=== PATIENT | female | born 1955 | race Caucasian/White ===

== ENCOUNTER 2017-04-18 10:08 | Emergency (ER) | payer BC ==
[~2017-04-18] VITALS: Ht 170.2 cm; Wt 69.9 kg
[~2017-04-18 10:08] MED LIST: CLON1TAB3 PO; DULO-24 PO; HYDR-4383 PO; SIMV40TA2 PO; TRAZ50TA35 PO
[2017-04-18 10:12] VITALS: TEMP 36.8; Ht 170.2 cm; Wt 69.9 kg
[2017-04-18 10:21] VITALS: O2SAT 97
[2017-04-18 10:45] LABS: BASO % 0.6 %; BASO ABS # 0.04 K/uL (0-0.2); COMPLETE YES; EOS % 3.2 %; HEMATOCRIT 39.7 % (37-47); IG% 0.3 %; LYMPH % 45.3 %; LYMPH ABS # 2.97 K/uL (1.2-3.4); MEAN CELL VOLUME 90.6 fL (80-100); MEAN CORPUSCULAR HEMOGLOBIN 30.4 pg (25-34); MEAN CORPUSCULAR HGB CONC 33.5 g/dl (32-36); MEAN PLATELET VOLUME 9.6 fL (7.4-10.4); MONO % 8.5 %; NEUT % 42.1 %; PLATELET COUNT 285 K/uL (130-400); RED BLOOD COUNT 4.38 M/uL (4.2-5.4); WHITE BLOOD COUNT 6.56 K/uL (4.8-10.8)
[2017-04-18 10:58] LABS: INR 0.9 (0.9-1.1); PARTIAL THROMBOPLASTIN RATIO 1.1; PROTHROMBIN TIME (PATIENT) 10.1 SECONDS (9.0-12.0)
--- NOTE | 2017-04-18 10:58 | DIAGNOSTIC IMAGING REPORT ---
CHEST ONE VIEW PORTABLE CLINICAL HISTORY: Fever. Sepsis. COMPARISON STUDY: Chest radiograph October 02, 2016. FINDINGS: Lung volumes are normal. No pneumothorax or pleural effusion is present. There is no consolidation to suggest pneumonia. Interstitial prominence is unchanged. Hazy bibasilar opacities are unchanged and likely artifactual. IMPRESSION: No acute cardiopulmonary findings. No change in appearance of the chest. Electronically signed by: Nilson Rutledge M.D. 04/18/2017 10:57 AM Dictated Date/Time: 04/18/2017 10:56 AM
[2017-04-18 11:08] LABS: ALT/SGPT 26 U/L (12-78); AST/SGOT 23 U/L (15-37); BLOOD UREA NITROGEN 7 mg/dl (7-18); BUN/CREATININE RATIO 9.8 (10-20); CALCIUM 8.6 mg/dl (8.5-10.1); CARBON DIOXIDE 26 mmol/L (21-32); CHLORIDE 109 mmol/L (98-107); GLUCOSE 103 mg/dl (70-99); POTASSIUM 3.8 mmol/L (3.5-5.1); SODIUM 143 mmol/L (136-145)
[2017-04-18 11:19] LABS: ALKALINE PHOSPHATASE 73 U/L (45-117)
--- NOTE | 2017-04-18 11:51 | EMERGENCY ROOM VISIT NOTE ---
History Report prepared by Angelic: Dewayne Hoffmann Under the Supervision of: Dr. Roman Zurita D.O. First contact with patient: 10:23 Chief Complaint: IRREGULAR HEARTBEAT Stated Complaint: IRREGULAR HEARTBEAT Nursing Triage Summary: Patient states she's had irregular heart beats for over a year. Did have a holter monitor a year ago but had no episodes while on monitor. Over the last month the irregular heart rate has been more frequent. Denies pain. Called Dr and was told to come to ER. Denies dizziness. Sometimes she feels that her HR is irregular in her neck. pt reports palpatations, 3 fast beats then pause, then repeats History of Present Illness The patient is a 61 year old female who presents to the Emergency Room with complaints of worsening heart palpitations starting a month ago. The patient states that she can feel the irregular heart rate via the pulse in her neck. She reports that she feels a repetition of rapid beats followed by a pause. The patient states that she had a Holter monitor a year ago but denies any episodes. She states that she normally has an irregular heartbeat that has been going on for over a year, but the irregular heart beat has occurred more frequently for the past month. The patient reports that she had called her doctor who recommended she came to the ED. The patient states that her sister, aunt, and father had a stent placed in their heart. The patient denies any dizziness or pain but admits it is uncomfortable. She reports that she has a cough, but denies that this helped the symptoms. Source of History: patient Onset: a month ago Position: other (global) Timing: worsening Associated Symptoms: + cough, No abdominal pain, No back pain, No chest pain Review of Systems See HPI for pertinent positives & negatives. A total of 10 systems reviewed and were otherwise negative. Past Medical & Surgical Medical Problems: (1) High cholesterol (2) HYPERLIPIDEMIA NEC/NOS (3) Pneumonia (4) POLYMYALGIA RHEUMATICA Surgical Problems: (1) S/P lumbar spinal fusion Family History Cancer Social History Smoking Status: Current Every Day Smoker Drug Use: none Marital Status: Housing Status: lives alone Occupation Status: retired Current/Historical Medications Scheduled Duloxetine Hcl (Cymbalta), 20 MG PO DAILY Simvastatin (Zocor), 40 MG PO HS Scheduled PRN Clonazepam (Klonopin), 1 MG PO BID PRN for Anxiety Hydrocodone/Acetaminophen ([place] 10/325 Tab), 0.5 TAB PO TID PRN for Pain Trazodone Hcl (Trazodone), 25 MG PO HS PRN Allergies Coded Allergies: Levofloxacin (Verified Allergy, Intermediate, ITCHING.09/11/14, 04/18/17) Moxifloxacin (Unverified Allergy, Intermediate, ITCHING AND SWELLING IN HANDS, 04/18/17) Penicillins (Unverified Allergy, Unknown, rash, 04/18/17) Erythromycin (Unverified Adverse Reaction, Unknown, VOMITING, 04/18/17) Physical Exam Vital Signs Date Time Temp Pulse Resp B/P Pulse Ox O2 Delivery O2 Flow Rate FiO2 04/18/17 10:29 74 04/18/17 10:21 97 Room Air 04/18/17 10:20 96 Room Air 04/18/17 10:16 96 Room Air 04/18/17 10:12 36.8 84 16 115/68 96 Room Air Physical Exam CONSTITUTIONAL/VITAL SIGNS: Reviewed / noted above. GENERAL: Non-toxic in appearance. INTEGUMENTARY: Warm, dry, and [place]. HEAD: Normocephalic. EYES: without scleral icterus or trauma. ENT/OROPHARYNX: clear and moist. LYMPHADENOPATHY/NECK: Is supple without lymphadenopathy or meningismus. RESPIRATORY: Lungs clear and equal. CARDIOVASCULAR: Regular rate and rhythm. GI/ABDOMEN: Soft and nontender. No organomegaly or pulsatile mass. No rebound or guarding. Normal bowel sounds. EXTREMITIES: Warm and well perfused. BACK: No CVA tenderness. NEUROLOGICAL: Intact without focal deficits. PSYCHIATRIC: normal affect. MUSCULOSKELETAL: Normally developed with good muscle tone. Medical Decision & Procedures ER Provider Diagnostic Interpretation: X ray results and stated below per my interpretation and radiology interpretation. CHEST ONE VIEW PORTABLE CLINICAL HISTORY: Fever. Sepsis. COMPARISON STUDY: Chest radiograph October 02, 2016. FINDINGS: Lung volumes are normal. No pneumothorax or pleural effusion is present. There is no consolidation to suggest pneumonia. Interstitial prominence is unchanged. Hazy bibasilar opacities are unchanged and likely artifactual. IMPRESSION: No acute cardiopulmonary findings. No change in appearance of the chest. Electronically signed by: Nilson Rutledge M.D. 04/18/2017 10:57 AM Dictated Date/Time: 04/18/2017 10:56 AM Laboratory Results 04/18/17 10:23 Red Blood Count 4.38, Mean Corpuscular Volume 90.6, Mean Corpuscular Hemoglobin 30.4, Mean Corpuscular Hemoglobin Concent 33.5, Mean Platelet Volume 9.6, Neutrophils (%) (Auto) 42.1, Lymphocytes (%) (Auto) 45.3, Monocytes (%) (Auto) 8.5, Eosinophils (%) (Auto) 3.2, Basophils (%) (Auto) 0.6, Neutrophils # (Auto) 2.76, Lymphocytes # (Auto) 2.97, Monocytes # (Auto) 0.56, Eosinophils # (Auto) 0.21, Basophils # (Auto) 0.04 04/18/17 10:23 Test 04/18/17 10:23 White Blood Count 6.56 K/uL (4.8-10.8) Red Blood Count 4.38 M/uL (4.2-5.4) Hemoglobin 13.3 g/dL (12.0-16.0) Hematocrit 39.7 % (37-47) Mean Corpuscular Volume 90.6 fL (80-100) Mean Corpuscular Hemoglobin 30.4 pg (25-34) Mean Corpuscular Hemoglobin Concent 33.5 g/dl (32-36) Platelet Count 285 K/uL (130-400) Mean Platelet Volume 9.6 fL (7.4-10.4) Neutrophils (%) (Auto) 42.1 % Lymphocytes (%) (Auto) 45.3 % Monocytes (%) (Auto) 8.5 % Eosinophils (%) (Auto) 3.2 % Basophils (%) (Auto) 0.6 % Neutrophils # (Auto) 2.76 K/uL (1.4-6.5) Lymphocytes # (Auto) 2.97 K/uL (1.2-3.4) Monocytes # (Auto) 0.56 K/uL (0.11-0.59) Eosinophils # (Auto) 0.21 K/uL (0-0.5) Basophils # (Auto) 0.04 K/uL (0-0.2) RDW Standard Deviation 43.1 fL (36.4-46.3) RDW Coefficient of Variation 12.9 % (11.5-14.5) Immature Granulocyte % (Auto) 0.3 % Immature Granulocyte # (Auto) 0.02 K/uL (0.00-0.02) Prothrombin Time 10.1 SECONDS (9.0-12.0) Prothromb Time International Ratio 0.9 (0.9-1.1) Activated Partial Thromboplast Time 28.1 SECONDS (21.0-31.0) Partial Thromboplastin Ratio 1.1 Anion Gap 8.0 mmol/L (3-11) Est Creatinine Clear Calc Drug Dose 82.1 ml/min Estimated GFR () 108.4 Estimated GFR (Non- 93.5 BUN/Creatinine Ratio 9.8 (10-20) Calcium Level 8.6 mg/dl (8.5-10.1) Total Bilirubin 0.3 mg/dl (0.2-1) Direct Bilirubin < 0.1 mg/dl (0-0.2) Aspartate Amino Transf (AST/SGOT) 23 U/L (15-37) Alanine Aminotransferase (ALT/SGPT) 26 U/L (12-78) Alkaline Phosphatase 73 U/L (45-117) Total Creatine Kinase 16 U/L (26-192) Creatine Kinase MB < 0.5 ng/ml (0.5-3.6) Creatine Kinase MB Ratio (0-3.0) Troponin I < 0.015 ng/ml (0-0.045) Total Protein 7.4 gm/dl (6.4-8.2) Albumin 3.7 gm/dl (3.4-5.0) Thyroid Stimulating Hormone (TSH) 1.790 uIu/ml (0.300-4.500) Laboratory results as stated above per my review. ECG Indication: palpitations Rate (beats per minute): 75 Rhythm: normal sinus Findings: no acute ischemic change, no ectopy ED Course 1035: Previous medical records were reviewed. The patient was evaluated in room B06. A complete history and physical examination was performed. 1135: On reevaluation, the patient is doing well. I discussed the results and findings with the patient. She verbalized agreement of the treatment plan. She was discharged home. Medical Decision the differential was considered includes acute myocardial infarction, acute coronary syndrome, myocarditis, pericarditis, pericardial effusions /tamponad, esophageal perforation, thoracic aortic dissection, pulmonary embolism, pneumonia, pneumothorax, pancreatitis, shingles, acute cholecystitis, perforated abdominal viscus. This is 61-year-old female who presents to the ED with a chief complaint of heart palpitations. She states that they resolved shortly after she arrived. They were not caught on the monitor. The patient states that she has a few beats and then a positive a couple of beats and her heart feels like it races on occasion. She has had this in the past. She denies any other symptoms and is currently asymptomatic. Her vital signs are normal. Her physical exam was normal. EKG shows a normal sinus rhythm. CBC and PRP are normal. Troponin and TSH are normal. Chest x-ray did not show acute disease. The patient did not have any arrhythmia during her ED stay. She was told results and felt stable for discharge. Outpatient Holter monitoring or event monitoring may be applicable. She was referred her PCP for this. Impression Primary Impression: Palpitations Scribe Attestation The scribe's documentation has been prepared under my direction and personally reviewed by me in its entirety. I confirm that the note above accurately reflects all work, treatment, procedures, and medical decision making performed by me. Departure Information Dispostion Home / Self-Care Referrals Roverto Muller D.O. (PCP) Patient Instructions ED Palpitations, My [facility] Additional Instructions Follow-up with your doctor for further evaluation and outpatient monitoring. Follow-up with your doctor for further care and evaluation in 1-2 days. Return to the emergency department for worsening or new symptoms or any concerns. You have been examined and treated today on an emergency basis only. This is not a substitute for, or an effort to provide, complete comprehensive medical care. It is impossible to recognize and treat all injuries or illnesses in a single emergency department visit. It is therefore important that you follow up closely with your doctor. Call as soon as possible for an appointment.
[2017-04-18 12:22] VITALS: BP 141/47; PULSE 65; O2SAT 98
== END 2017-04-18 12:24 | disposition home or self-care (01) ==
LOC: C.EDB 10:10
DX: R00.2 Palpitations (principal); E78.00 Pure hypercholesterolemia, unspecified; E78.5 Hyperlipidemia, unspecified; Z87.01 Personal history of pneumonia (recurrent); Z80.9 Family history of malignant neoplasm, unspecified; F17.210 Nicotine dependence, cigarettes, uncomplicated; Z79.899 Other long term (current) drug therapy

== ENCOUNTER → 2018-06-19 | Outpatient (CLI) | payer BC ==
[~2018-06-19] MED LIST changes: -CLON1TAB3 PO; +CLON1TAB5 PO
--- NOTE | 2018-06-19 14:56 | MAMMOGRAPHY REPORT ---
BILATERAL DIGITAL DIAGNOSTIC MAMMOGRAM TOMOSYNTHESIS WITH CAD AND TARGETED LEFT ULTRASOUND: 06/19/2018 CLINICAL HISTORY: 62-year-old woman presents with intermittent left lateral breast pain that radiates to the nipple in the 3:00 axis, which she describes as aching pain. No skin erythema or nipple disch arge. No palpable lumps. No family history of breast cancer. Also due for annual bilateral screening mammograms. Patient also has a history of bilateral subpectoral saline implants. TECHNIQUE: Bilateral CC and MLO views of the breast with and without implant displacement views were obtained. Tomosynthesis was also performed on the implant displaced views. Current study was also e valuated with a Computer Aided Detection (CAD) system. COMPARISON: Comparison is made to exams dated: 08/24/2015 mammogram, 08/24/2015 ultrasound, 01/26/2014 mammogram, 01/08/2013 mammogram, 05/19/2011 mammogram - [facility], and 10/11/2007. BREAST COMPOSITION: The tissue of both breasts is heterogeneously dense, which may obscure small mass es. FINDINGS: Bilateral subpectoral saline implants are intact. There are stable benign rim calcificatio ns in each breast. Also stable groupings of benign-appearing calcifications throughout the entire le ft breast on the implant displaced views. No obvious new masses, suspicious new calcifications, asym metries or areas of architectural distortion are seen bilaterally. Targeted ultrasound was performed throughout the lateral left breast approximately 10 cm from the nip ple, and the area of pain pointed out by the patient, wakes extends from the 2:00 to 5:00 axes and al so radiates to the nipple in the approximate 3:00 breast. Sonographically normal tissue is seen with out a suspicious solid or cystic mass. No focal skin thickening or drainable fluid collection identi fied. IMPRESSION: ACR BI-RADS CATEGORY 2: BENIGN, ULTRASOUND ACR BI-RADS CATEGORY 2: BENIGN 1. There is no new suspicious mammographic or targeted sonographic abnormality to explain the interm ittent nonfocal aching mastalgia described by the patient. Therefore, continued clinical follow-up a nd clinical monitoring is recommended, as biopsy of a clinically suspicious mass should not be preclu ded by negative imaging. 2. There is no mammographic evidence of malignancy in the breasts. Recommend routine screening mamm ography in 1 year. These results and recommendations were discussed with the patient at the time of the exam. ( 9) Some breast cancers are not detected with mammography. A negative mammographic report should not gabrielle y biopsy if a clinically suggestive mass is present. Skyla Ruano M.D. ay/:06/19/2018 11:13:35 Registered Respiratory Therapist: RT Deshaun(R)(M), [facility] letter sent: Normal / OVERALL STUDY BIRADS: 2 Benign
== END | disposition home or self-care (01) ==
LOC: C.MAMM 08:35
PROVIDERS: ATTEND Nurse Practitioner Family
DX: N64.4 Mastodynia (principal)

== ENCOUNTER 2022-10-25 09:48 | Inpatient (IN) ==
--- NOTE | 2022-10-25 11:04 | Emergency Department Note ---
Impression & Plan GIB (gastrointestinal bleeding), Colitis, Abdominal pain ED Provider Note NAME: MELISSA FORD AGE: 66 SEX: F : 1955 ARRIVES VIA: Walk-In INFORMANT: Patient ED PROVIDER(S): Clive Lim DO CHIEF COMPLAINT: Dark and tarry stools HPI: Patient is a 63-year-old female with past medical history of TIA, COPD, depression, anxiety, who follows with gastroenterology from [facility] who had a scope in February who was found to have 5 gastric ulcers. She notes she has had intermittently dark tarry stools off and on for the past 1 to 2 weeks. Unfortunately it has been persistent for the past 24 to 48 hours. She denies any headache or change in vision. No chest pain or shortness of breath. Periumbilical abdominal pain associated with nausea but no vomiting. No dysuria, urgency, or frequency. No other exacerbating or remitting factors. Denies any alcohol use. Pain is a 7 out of 10. ROS: See above HPI for pertinent positives & negatives. A total of 10 systems reviewed and were otherwise negative. PAST MEDICAL HISTORY:See Below PAST SURGICAL HISTORY:See Below FAMILY HISTORY:See Below SOCIAL HISTORY:See Below HOME MEDICATIONS:See Below ALLERGIES:See Below VITALS:See Below PHYSICAL EXAMINATION: GENERAL: Sitting up in bed, alert, well appearing, well nourished, no distress, non-toxic EYE EXAM: normal conjunctiva. OROPHARYNX: no exudate, no erythema, lips, buccal mucosa, and tongue normal and mucous membranes are moist NECK: supple, no nuchal rigidity, no adenopathy, non-tender LUNGS: Clear to auscultation. Normal chest wall mechanics HEART: no murmurs, S1 normal and S2 normal ABDOMEN: abdomen soft, tender on palpation diffusely, normo-active bowel sounds, no masses, no rebound or guarding. UPPER EXTREMITIES: upper extremities are grossly normal. LOWER EXTREMITIES: No pitting edema. NEURO EXAM: Normal sensorium, cranial nerves II-XII grossly intact, normal speech, no gross weakness of arms, no gross weakness of legs. MEDICAL DECISION MAKING: Patient is a 66-year-old female who presents the ER for diffuse abdominal pain associated with nausea but no vomiting with dark stools that been present since yesterday and diarrhea. IV was established blood work was obtained. Labs show mild leukocytosis of 11,000. No significant anemia. INR unremarkable. Denies any blood thinners. BMP along with LFTs bilirubin was unremarkable. Stool is positive. She was typed and screened. CT abdomen pelvis was performed and showed colitis with the distribution and question if this was ischemic. Did discuss with Dr. Sanders and vicky torrez in regards to admission and further work-up. Did add on a lactic acid after discussion with the hospitalist. Patient was placed on Protonix drip and bolus initially with the heme positive stool reports of black tarry stool. Triage Nursing notes reviewed. Limited review of prior medical records performed Vital Signs: reviewed and remarkable for no significant abnormalities Differential diagnosis: Differential diagnoses includes but is not limited to gastritis, peptic ulcer disease, GERD, gallbladder disease, pancreatitis, small bowel obstruction, acute coronary syndrome, pericarditis, ischemic bowel, irritable bowel disease, irritable bowel syndrome, appendicitis, diverticulitis, malignancy, hernia, urinary tract infection, torsion, [/ectopic (if female)], perforation, trauma, infectious. ER treatment provided: See below Diagnostics interpreted by me: ECG: Sinus rhythm rate of 68 Normal axis No PVCs QTC 423 Cardiac Monitoring: An order was placed for continuous cardiac monitoring. The monitor shows a rate of 70 with sinus rhythm. Laboratory studies: As stated above and show below. Imaging studies: CT abdomen pelvis showed colitis Consultation(s): Discussed with Dr. Sanders and he agreed with admission to the hospitalist and they will evaluate the patient Discussed with Dr. Reed. Please see his note for further work-up and management. Procedures: none Critical Care: None Past Med/Surg History Medical History (Updated 10/25/22 @ 14:35 by Clive Lim DO) Bladder pain Brain TIA High cholesterol History of penicillin allergy Mastalgia in female Solitary pulmonary nodule Surgical History Previous back surgery S/P breast augmentation S/P dilation and curettage D&E S/P dilation of urethra S/P laparoscopy S/P lumbar spinal fusion S/P tooth extraction Family History Father COPD (chronic obstructive pulmonary disease) Lymphoma Tuberculosis Mother Lymphoma Tuberculosis Grandfather (Maternal) Tuberculosis Denies family history of Ovarian cancer Breast cancer Colorectal cancer Social History Smoking Status: Current every day smoker Tobacco Type: Cigarettes Age Started Using Tobacco: 20; packs per day: 1; Cigarettes Per Day: 10; Hx Alcohol Use: No Hx Substance Use: No Preferred Language: Malian Feels Safe at Home: Yes Allergies Allergies Allergy/AdvReac Type Severity Reaction Status Date / Time levofloxacin Allergy Intermediate ITCHING.10/ Verified 07/25/21 09:03 24/14 moxifloxacin Allergy Intermediate ITCHING Verified 07/25/21 09:03 AND SWELLING IN HANDS Penicillins Allergy Unknown rash Verified 07/25/21 09:03 erythromycin base AdvReac Unknown VOMITING Verified 07/25/21 09:03 Home Meds Home Medications Medication Instructions Recorded Confirmed duloxetine 60 mg capsule,delayed 60 mg PO DAILY 09/18/19 10/25/22 release (Cymbalta) trazodone 50 mg tablet 50 mg PO DAILY 09/18/19 10/25/22 aspirin 81 mg tablet,delayed 81 mg PO DAILY 07/07/20 10/25/22 release (Adult Aspirin Regimen) albuterol sulfate 90 mcg/actuation 2 puff inhalation QID PRN Wheezing 07/25/21 10/25/22 aerosol inhaler (Ventolin HFA) hydrocodone 10 mg-acetaminophen 1 tab PO TID PRN Pain 07/25/21 07/25/21 325 mg tablet rosuvastatin 10 mg tablet 10 mg PO HS 07/25/21 10/25/22 pantoprazole 40 mg tablet,delayed 40 mg PO 10/25/22 release Results & Data (ED) Vital Signs Vital Signs - 24 hr 10/25/22 09:56 Temperature 36.6 C Temperature Source Temporal Artery Scan Pulse Rate 89 Respiratory Rate 18 Blood Pressure 114/71 Blood Pressure Mean 85 Pulse Oximetry 94 Oxygen Delivery Method Room Air Sepsis Recent Fever Within 48 Hours No Sepsis New/Unexplained Change in Mental Status No Sepsis Action Taken by Nursing No Action Required Laboratory Data Result diagrams: 10/25/22 11:17 10/25/22 11:17 Lab Results 10/25/22 10/25/22 10/25/22 Range/Units 11:17 11:17 11:17 WBC 11.24 H (4.8-10.8) K/ul RBC 4.50 (3.93-5.22) M/uL Hgb 13.7 (12.0-16.0) g/dl Hct 40.0 (34.1-44.9) % MCV 88.9 (80.0-100.0) fL MCH 30.4 (25.0-34.0) pg MCHC 34.3 (32.0-36.0) g/dL RDW Std Deviation 46.4 H (36.4-46.3) fL RDW Coeff of Roberto 14.3 (11.5-14.5) % Plt Count 286 (130-400) K/uL MPV 9.8 (9.4-12.3) fL PT 10.4 (9.0-12.0) Seconds INR 1.0 (0.9-1.1) APTT 25.7 (21.0-31.0) Seconds PTT Ratio 0.9 Sodium (136-145) mmol/L Potassium (3.5-5.1) mmol/L Chloride (98-107) mmol/L Carbon Dioxide (21-32) mmol/L Anion Gap (3-11) BUN (6-23) mg/dl Creatinine (0.6-1.2) mg/dl Est Cr Clr Drug Dosing ml/min Est GFR ( Amer) ml/min Est GFR (Non-Af Amer) ml/min BUN/Creatinine Ratio (10-20) Glucose (70-99(Fasting)) mg/dl Calcium (8.5-10.1) mg/dl Total Bilirubin (0.2-1.0) mg/dl AST (13-39) U/L ALT (7-52) U/L Alkaline Phosphatase (34-104) U/L Total Protein (6.0-8.3) gm/dl Albumin (3.4-5.0) gm/dl Globulin (2.5-4.0) gm/dl Albumin/Globulin Ratio (0.9-2) POC Stool Occult Blood (Negative) Blood Type O Positive Antibody Screen NEGATIVE 10/25/22 10/25/22 Range/Units 11:17 12:12 WBC (4.8-10.8) K/ul RBC (3.93-5.22) M/uL Hgb (12.0-16.0) g/dl Hct (34.1-44.9) % MCV (80.0-100.0) fL MCH (25.0-34.0) pg MCHC (32.0-36.0) g/dL RDW Std Deviation (36.4-46.3) fL RDW Coeff of Roberto (11.5-14.5) % Plt Count (130-400) K/uL MPV (9.4-12.3) fL PT (9.0-12.0) Seconds INR (0.9-1.1) APTT (21.0-31.0) Seconds PTT Ratio Sodium 140 (136-145) mmol/L Potassium 4.0 (3.5-5.1) mmol/L Chloride 107 (98-107) mmol/L Carbon Dioxide 28 (21-32) mmol/L Anion Gap 5 (3-11) BUN 9 (6-23) mg/dl Creatinine 0.56 L (0.6-1.2) mg/dl Est Cr Clr Drug Dosing 91.4 ml/min Est GFR ( Amer) 112.6 ml/min Est GFR (Non-Af Amer) 97.2 ml/min BUN/Creatinine Ratio 16.1 (10-20) Glucose 98 (70-99(Fasting)) mg/dl Calcium 9.0 (8.5-10.1) mg/dl Total Bilirubin 0.4 (0.2-1.0) mg/dl AST 21 (13-39) U/L ALT 12 (7-52) U/L Alkaline Phosphatase 69 (34-104) U/L Total Protein 6.5 (6.0-8.3) gm/dl Albumin 3.7 (3.4-5.0) gm/dl Globulin 2.8 (2.5-4.0) gm/dl Albumin/Globulin Ratio 1.3 (0.9-2) POC Stool Occult Blood Positive A (Negative) Blood Type Antibody Screen Administered Medications Pantoprazole Sodium 40 mg/ (Dextrose) 100 mls @ 20 mls/hr IV Q5H NAYA Stop: 11/24/22 11:29 Last Admin: 10/25/22 12:52 Dose: 8 mg/hr, 20 mls/hr Documented By: HG Discontinued Medications Pantoprazole Sodium (Protonix Bolus/Drip) 0 mls @ 1 mls/hr IV ONE STA Stop: 10/25/22 11:16 Last Admin: 10/25/22 12:41 Dose: Not Given Documented By: HG Pantoprazole Sodium 80 mg/ (Dextrose) 120 mls @ 400 mls/hr IV NOW ONE Stop: 10/25/22 11:32 Last Infusion: 10/25/22 12:36 Dose: 0 mls/hr Documented By: Admin: 10/25/22 11:56 Dose: 400 mls/hr Documented By: QGV Sodium Chloride (Nss 1000ml) 1,000 mls @ 999 mls/hr IV .Q1H1M ONE Stop: 10/25/22 12:17 Last Infusion: 10/25/22 13:29 Dose: 0 mls/hr Documented By: Admin: 10/25/22 12:06 Dose: 999 mls/hr Documented By: QGV Morphine Sulfate (Morphine Sulfate 10 Mg/Ml Carp/Vial) 6 mg IV NOW STA Stop: 10/25/22 11:18 Last Admin: 10/25/22 11:54 Dose: 6 mg Documented By: QGV Ondansetron HCl (Ondansetron Inj 2 Mg/Ml 2 Ml Vial) 4 mg IV NOW STA Stop: 10/25/22 11:18 Last Admin: 10/25/22 11:54 Dose: 4 mg Documented By: QGV Imaging Data Radiologist's Impression: Abdomen/Pelvis CT 10/25/22 11:17 CT OF THE ABDOMEN AND PELVIS WITHOUT CONTRAST CLINICAL HISTORY: Abdominal pain. GI bleed. COMPARISON STUDY: CT of the abdomen and pelvis July 14, 2015 and pelvic ultrasound October 02, 2019. TECHNIQUE: Axial images of the abdomen and pelvis were obtained without IV contrast. Images were reviewed in the axial, sagittal, and coronal planes. Automated exposure control was utilized for the study. A dose lowering technique was utilized adhering to the principles of ALARA. FINDINGS: Healing nondisplaced anterior right seventh rib fracture is noted. Bilateral breast implants are partially imaged. There are postoperative findings within the spine consistent with L4-L5 discectomy, posterior decompression and bilateral pedicle screw fusion. There is no acute fracture within the visualized skeletal structures. No suspicious osseous lesions are present. No renal, ureteral or bladder calculi are present. There is no hydronephrosis or hydroureter. Evaluation of the remainder of the abdomen and pelvis is suboptimal on this unenhanced exam. A 2.4 cm right hepatic lobe cyst is noted. This was shown on prior CT. No biliary or pancreatic ductal dilatation. No peripancreatic or pericholecystic stranding. There is no evidence for a bowel obstruction. Moderate wall thickening with subtle pericolonic stranding of the descending and proximal sigmoid colon is noted. There is no free air. No abscess. Colonic diverticulosis is noted without evidence for acute diverticulitis. A moderate amount stool within the sigmoid colon is present. The appendix is normal. There is no lymphadenopathy. Moderate atherosclerotic plaque of the abdominal aorta is noted. Caliber of the abdominal aorta is normal. IMPRESSION: 1. Moderate wall thickening with mild pericolonic stranding of the descending and proximal sigmoid colon. This is consistent with colitis. Although nonspecific, this distribution raises the possibility of ischemic colitis. 2. Colonic diverticulosis. No evidence for acute diverticulitis. No bowel obstruction. ACT 112: Negative or not required by law. Electronically signed by: Nilson Rutledge M.D. 10/25/2022 12:34 PM Discharge Plan Visit Data Chief Complaint: Bleeding Stated Complaint: ULCERS ARE BLEEDING, REFERRED BY ED Provider: Clive Lim Discharge Problem: GIB (gastrointestinal bleeding), Colitis, Abdominal pain Forms Stand Alone Forms: [facility] [employer] Prescriptions Prescriptions: No Action duloxetine [Cymbalta] 60 mg capsule,delayed release(DR/EC) 60 mg PO DAILY trazodone 50 mg tablet 50 mg PO DAILY aspirin [Adult Aspirin Regimen] 81 mg tablet,delayed release (DR/EC) 81 mg PO DAILY rosuvastatin 10 mg tablet 10 mg PO HS hydrocodone-acetaminophen 10-325 mg tablet 1 tab PO TID PRN (Reason: Pain) albuterol sulfate [Ventolin HFA] 90 mcg/actuation HFA aerosol inhaler 2 puff INHALATION QID PRN (Reason: Wheezing) pantoprazole 40 mg tablet,delayed release (DR/EC) 40 mg PO Referrals Referrals: Shannan Leonard MD [Primary Care Provider] -
[2022-10-25] MEDS ORDERED: PANTOprazole 80 MG in DEXTROSE 5% 100 ML IV ONE (11:15)
[2022-10-25] MEDS ORDERED: PANTOPRAZOLE BOLUS/DRIP 1 EACH IV STA (11:15)
[2022-10-25] MEDS ORDERED: SODIUM CHLORIDE 0.9% 1000ML 1,000 ML IV ONE ×2 (11:17→14:36)
[2022-10-25] MEDS ORDERED: ONDANSETRON INJ 2 MG/ML 2 ML VIAL IV STA (11:17)
[2022-10-25] MEDS ORDERED: MoRPHine SULFATE 10 MG/ML CARP/VIAL IV STA (11:17)
[2022-10-25 11:46] LABS: Hemoglobin 13.7 g/dl (12.0-16.0); Mean Corpuscular Hemoglobin 30.4 pg (25.0-34.0); Mean Corpuscular Hgb Conc 34.3 g/dL (32.0-36.0); Mean Corpuscular Volume 88.9 fL (80.0-100.0); Mean Platelet Volume 9.8 fL (9.4-12.3); Platelet Count 286 K/uL (130-400); RDW Coefficient of Variation 14.3 % (11.5-14.5); RDW Standard Deviation 46.4 fL (36.4-46.3); White Blood Count 11.24 K/ul (4.8-10.8)
[2022-10-25 11:59] LABS: Partial Thromboplastin Ratio 0.9; Partial Thromboplastin Time 25.7 Seconds (21.0-31.0); Prothrombin Time 10.4 Seconds (9.0-12.0)
[2022-10-25 12:11] LABS: Albumin Globulin Ratio 1.3 (0.9-2); Albumin Level 3.7 gm/dl (3.4-5.0); BUN Creatinine Ratio 16.1 (10-20); Bilirubin,Total 0.4 mg/dl (0.2-1.0); Creatinine Clr Calc Pharmacy 91.4 ml/min; Est GFR (African American) 112.6 ml/min; Est GFR (Non-African American) 97.2 ml/min; Globulin 2.8 gm/dl (2.5-4.0); Total Protein 6.5 gm/dl (6.0-8.3)
--- NOTE | 2022-10-25 12:36 | CT Scan Report ---
CT OF THE ABDOMEN AND PELVIS WITHOUT CONTRAST CLINICAL HISTORY: Abdominal pain. GI bleed. COMPARISON STUDY: CT of the abdomen and pelvis July 14, 2015 and pelvic ultrasound October 02 19. TECHNIQUE: Axial images of the abdomen and pelvis were obtained without IV contrast. Images were revi ewed in the axial, sagittal, and coronal planes. Automated exposure control was utilized for the kojo dy. A dose lowering technique was utilized adhering to the principles of ALARA. FINDINGS: Healing nondisplaced anterior right seventh rib fracture is noted. Bilateral breast implant s are partially imaged. There are postoperative findings within the spine consistent with L4-L5 disce ctomy, posterior decompression and bilateral pedicle screw fusion. There is no acute fracture within the visualized skeletal structures. No suspicious osseous lesions are present. No renal, ureteral or bladder calculi are present. There is no hydronephrosis or hydroureter. Evaluation of the remainder o f the abdomen and pelvis is suboptimal on this unenhanced exam. A 2.4 cm right hepatic lobe cyst is n oted. This was shown on prior CT. No biliary or pancreatic ductal dilatation. No peripancreatic or pe richolecystic stranding. There is no evidence for a bowel obstruction. Moderate wall thickening with subtle pericolonic stranding of the descending and proximal sigmoid colon is noted. There is no free air. No abscess. Colonic diverticulosis is noted without evidence for acute diverticulitis. A moderat e amount stool within the sigmoid colon is present. The appendix is normal. There is no lymphadenopat hy. Moderate atherosclerotic plaque of the abdominal aorta is noted. Caliber of the abdominal aorta i s normal. IMPRESSION: 1. Moderate wall thickening with mild pericolonic stranding of the descending and proximal sigmoid co mary. This is consistent with colitis. Although nonspecific, this distribution raises the possibility of ischemic colitis. 2. Colonic diverticulosis. No evidence for acute diverticulitis. No bowel obstruction. ACT 112: Negative or not required by law. Electronically signed by: Nilson Rutledge M.D. 10/25/2022 12:34 PM
[2022-10-25] MEDS: PANTOprazole 40 MG in DEXTROSE 5% 100 ML IV SCH ×2 (12:52→17:56)
--- NOTE | 2022-10-25 13:38 | History & Physical Report ---
Date of Service October 25, 2022 Assessment & Plan (1) GIB (gastrointestinal bleeding): Plan: Zoe is a 66-year-old female with a past medical history of PMR, gastric ulcers, hyperlipidemia, COPD, and TIA on aspirin [place] [facility] with 5 gastric ulcers who presents with 2 weeks of dark tarry stools and melena. No chest pain, shortness of breath. Epigastric tenderness present on presentation to ER. Patient was started on PPI drip and ER and recommended for admission for recurrent EGD for ongoing melena. Hemoglobin on admission is 13.7, last 13.8. MCV 88.9. Melena, ?ischemic versus infectious colitis Patient presents with ongoing melena, with EGD 02/2022 showing 5 gastric ulcers Physical exam patient with tenderness infraumbilically without rebound, minimal to no epigastric pain Abdominal pain started after eating [employer] yesterday - CT-A/P noncontrast- IMPRESSION: 1. Moderate wall thickening with mild pericolonic stranding of the descending and proximal sigmoid colon. This is consistent with colitis. Although nonspecific, this distribution raises the possibility of ischemic colitis. 2. Colonic diverticulosis. No evidence for acute diverticulitis. No bowel obstruction. Lactate normal No NSAID use Is on aspirin daily for history of TIA Hemoglobin on admission 13.7, stable from prior 13.8. MCV 88.9, not microcytic - Placed on PPI drip empirically in ER to cover for upper GI bleed given history of ulcers Discussed with GI, updated on clinical exam. Recommended holding on antibiotics and CT angio pending evaluation and may get for interval reevaluation if not improving. Suspect ischemic versus possible infectious likely be self-limited Anxiety Continue duloxetine 60 mg daily TIA [facility] in 2019? TIA versus vasospasm. MRI was negative for acute findings, consistent with small vessel disease. No history of A. fib. Aspirin was discontinued at prior visit 2/2 GI bleeding. Risk/benefits pending evaluation and treatment of ongoing GI bleed event in the setting of pa st TIA. Hold for now COPD No PFTs available for review, patient is a daily cigarette user Denies wheezing, hospitalization for COPD Continue albuterol as needed at this time No wheezing on admitting exam DVT prophylaxis: Deferred in the setting of bleeding Disposition: Medical telemetry given ongoing bleeding and hemoglobin trend CODE STATUS: Full code Diet: No colonoscopy/endoscopy appreciated at this time. Will advance to clears (2) TIA (transient ischemic attack): (3) COPD (chronic obstructive pulmonary disease): (4) Depression with anxiety: (5) Polymyalgia rheumatica: History of Present Illness Primary Care Provider: Shannan Leonard MD Zoe is a 66-year-old female with a past medical history of PMR, gastric ulcers, hyperlipidemia, COPD, and TIA on aspirin [place] [facility] with 5 gastric ulcers who presents with 2 weeks of dark tarry stools and melena. No chest pain, shortness of breath. Epigastric tenderness present on presentation to ER. Patient was started on PPI drip and ER and recommended for admission for recurrent EGD for ongoing melena. Hemoglobin on admission is 13.7, last 13.8. MCV 88.9. Zoe is seen at the bedside. She reports that she has a history of gastric ulcers and melena. This was first noticed last November when she had several episodes of black sticky bowel movements. She was unable to get a urgent colonoscopy here, and spends most of her time in the state of [place] over the winter so she had a EGD performed in [place] which showed 5 ulcers, and a colonoscopy which showed benign polyps. She had a 5-month follow-up with Dr. Esteban at [facility] which showed healing/improving ulcers and was continued on Protonix 40 mg daily. She is scheduled to have her next follow-up EGD next week for continued intermittent black bowel movements over the last few months, but developed severe low abdominal pain last night and felt like she could not wait. She describes her pain as a strong and crampy, like labor pain, and worse palpitation in her low mid abdomen. Denies epigastric pain. She is nauseous and feels like she would like to vomit, but has not vomited. She has not had any chest pain, chest pressure, shortness of breath, difficulty breathing. She has not used any aspirin or NSAIDs, and reports she has been taken off aspirin permanently by her [place] provider after her previous ulcer evaluation. Denies history of heart attacks, did have a possible TIA episode which she discussed with her prior provider before stopping aspirin she has a 0.5 pack/day cigarette use "forever, since teenager ", denies alcohol/recreational drug use. She denies fever, chills, sweats, lightheadedness, dizziness. Endorses anxiety and abdominal pain. Medical History: Reviewed Medications: Reviewed Surgical History: Reviewed Allergies: Reviewed Social History: Reviewed. Regular tobacco use Code Status: Full code Allergies Allergy/AdvReac Type Severity Reaction Status Date / Time levofloxacin Allergy Intermediate ITCHING.10/ Verified 07/25/21 09:03 24/14 moxifloxacin Allergy Intermediate ITCHING Verified 07/25/21 09:03 AND SWELLING IN HANDS Penicillins Allergy Unknown rash Verified 07/25/21 09:03 erythromycin base AdvReac Unknown VOMITING Verified 07/25/21 09:03 Home Medications Medication Instructions Recorded Confirmed Type duloxetine 60 mg capsule,delayed 60 mg PO DAILY 09/18/19 10/25/22 History release (Cymbalta) trazodone 50 mg tablet 50 mg PO DAILY 09/18/19 10/25/22 History aspirin 81 mg tablet,delayed 81 mg PO DAILY 07/07/20 10/25/22 History release (Adult Aspirin Regimen) albuterol sulfate 90 mcg/actuation 2 puff inhalation QID PRN Wheezing 07/25/21 10/25/22 History aerosol inhaler (Ventolin HFA) hydrocodone 10 mg-acetaminophen 1 tab PO TID PRN Pain 07/25/21 07/25/21 History 325 mg tablet rosuvastatin 10 mg tablet 10 mg PO HS 07/25/21 10/25/22 History pantoprazole 40 mg tablet,delayed 40 mg PO 10/25/22 History release Past Med/Surg History Medical History Bladder pain Brain TIA High cholesterol History of penicillin allergy Mastalgia in female Solitary pulmonary nodule Surgical History Previous back surgery S/P breast augmentation S/P dilation and curettage D&E S/P dilation of urethra S/P laparoscopy S/P lumbar spinal fusion S/P tooth extraction Family History Father COPD (chronic obstructive pulmonary disease) Lymphoma Tuberculosis Mother Lymphoma Tuberculosis Grandfather (Maternal) Tuberculosis Denies family history of Ovarian cancer Breast cancer Colorectal cancer Social History Smoking Status: Current every day smoker Tobacco Type: Cigarettes Age Started Using Tobacco: 20; packs per day: 1; Cigarettes Per Day: 10; Hx Alcohol Use: No Hx Substance Use: No Preferred Language: Vietnamese Feels Safe at Home: Yes Review of Systems Review of Systems: All systems reviewed & are unremarkable except as noted in HPI & below Physical Exam Physical Exam: General: A&Ox3. NAD. Cooperative. Anxious affect, tearful and expresses anxiety regarding her ongoing bleeding HEENT: Atraumatic, normocephalic. Visual acuity/hearing grossly intact Pulm: CTAB A&P. -wheezes, -rales, -rhonchi. Symmetrical chest rise. No increase in work of breathing. No respiratory distress. Cardiac: RRR, -mrg. Radial pulses intact and symmetrical. Abdominal: Prominently tender at the umbilical, without rebound tenderness/guarding. Minimal to no epigastric tenderness. Bowel sounds intact. Extremities: Warm, dry. Moves upper and lower extremities equally. Sensation soft touch intact in hands and feet bilaterally Results & Data Results & Data ([facility]) Vital Signs (Past 12 Hours) Vital Signs Temp Pulse Resp BP Pulse Ox O2 Del Method 10/25/22 09:56 36.6 C 89 18 114/71 94 Room Air PG Care Time/CCT Total # of Minutes Spent Total Time Spent with Patient: Total time spent is greater than 50% in coordination of care (as documented) at patient's floor/unit and/or counseling patient: Coding Level of Care Code 16328 Initial Inpt Care Lvl 2 Diagnoses GIB (gastrointestinal bleeding) K92.2 TIA (transient ischemic attack) G45.9 COPD (chronic obstructive pulmonary disease) J44.9 Depression with anxiety F41.8 Polymyalgia rheumatica M35.3
--- NOTE | 2022-10-25 14:38 | Electrocardiogram Report ---
Test Reason : Blood Pressure : / mmHG Vent. Rate : 068 BPM Atrial Rate : 068 BPM P-R Int : 116 ms QRS Dur : 068 ms QT Int : 398 ms P-R-T Axes : 084 066 091 degrees QTc Int : 423 ms Poor data quality, interpretation may be adversely affected Normal sinus rhythm Possible Left atrial enlargement Nonspecific ST and T wave abnormality Abnormal ECG When compared with ECG of 27-AUG-2022 08:13, Non-specific change in ST segment in Anterolateral leads Nonspecific T wave abnormality no longer evident in Anterior leads Confirmed by Hiram Yates ([id number]) on 10/25/2022 2:38:27 PM Referred By: Provider Outside Confirmed By:Hiram Yates
--- NOTE | 2022-10-25 14:54 | Gastrointestinal Consultation ---
Date of Consultation October 25, 2022 Assessment & Plan (1) Colitis: Her symptoms are consistent with either ischemic colitis or an acute infectious enteritis. Either one will resolve on their own. She has had colonoscopy this year so I don't feel intervention is warranted. Her age and smoking history make her at risk for ischemic colitis. Her eating at a fast food restaurant would certainly make her at risk for an acute infectious enteritis. (2) Abdominal pain: see above History of Present Illness Reason for Consultation: Abdominal pain, melena History of Present Illness 66 year old female with a history of bleeding gastric ulcers ate at [employer] yesterday. Last night she became nauseous and developed significant left lower abdominal pain. She finally had a bowel movement and it was black. She continues to have abdominal pain but is no longer having melenic stools. She had a CT in the ED that showed colitis at the descending sigmoid junction. H/H are stable. She says she intermittently has been having black stools and she denies the use of peptobismol. She also intermittently has similar pains. Allergies Allergy/AdvReac Type Severity Reaction Status Date / Time levofloxacin Allergy Intermediate ITCHING.10/ Verified 07/25/21 09:03 24/14 moxifloxacin Allergy Intermediate ITCHING Verified 07/25/21 09:03 AND SWELLING IN HANDS Penicillins Allergy Unknown rash Verified 07/25/21 09:03 erythromycin base AdvReac Unknown VOMITING Verified 07/25/21 09:03 Home Medications Medication Instructions Recorded Confirmed Type duloxetine 60 mg capsule,delayed 60 mg PO DAILY 09/18/19 10/25/22 History release (Cymbalta) trazodone 50 mg tablet 50 mg PO DAILY 09/18/19 10/25/22 History aspirin 81 mg tablet,delayed 81 mg PO DAILY 07/07/20 10/25/22 History release (Adult Aspirin Regimen) albuterol sulfate 90 mcg/actuation 2 puff inhalation QID PRN Wheezing 07/25/21 10/25/22 History aerosol inhaler (Ventolin HFA) hydrocodone 10 mg-acetaminophen 1 tab PO TID PRN Pain 07/25/21 07/25/21 History 325 mg tablet rosuvastatin 10 mg tablet 10 mg PO HS 07/25/21 10/25/22 History pantoprazole 40 mg tablet,delayed 40 mg PO 10/25/22 History release Patient History Medical History Bladder pain Brain TIA High cholesterol History of penicillin allergy Mastalgia in female Solitary pulmonary nodule Surgical History Previous back surgery S/P breast augmentation S/P dilation and curettage D&E S/P dilation of urethra S/P laparoscopy S/P lumbar spinal fusion S/P tooth extraction Family History Father COPD (chronic obstructive pulmonary disease) Lymphoma Tuberculosis Mother Lymphoma Tuberculosis Grandfather (Maternal) Tuberculosis Denies family history of Ovarian cancer Breast cancer Colorectal cancer Social History Smoking Status: Current every day smoker Tobacco Type: Cigarettes Age Started Using Tobacco: 20; packs per day: 1; Cigarettes Per Day: 10; Hx Alcohol Use: No Hx Substance Use: No Preferred Language: Romansh Feels Safe at Home: Yes Review of Systems Review of Systems: All systems reviewed & are unremarkable except as noted in HPI & below Physical Exam Constitutional: WD/WN, vitals as above no acute distress Eyes: PERRL, conjunctivae normal, anicteric sclerae ENMT: external ear and nose normal, oropharynx normal Neck: trachea midline, no thyromegaly Respiratory: normal respiratory effort, lungs clear to auscultation Cardiovascular: RRR, no murmur, no edema Gastrointestinal (Abdomen): Inspection/Auscultation: abdomen normal to inspection and normal bowel sounds Percussion/Palpation: + abdomen tender (left lower abdomen) Musculoskeletal: Extremities: no cyanosis and no clubbing Skin: no rashes, warm and dry Neurologic: PERRL, EOMI, accommodation nl, no face palsy, no dysarthria Psychiatric: Orientation: alert and oriented x 3 Results & Data ([facility]) Vital Signs (Past 12 Hours) Vital Signs Temp Pulse Resp BP Pulse Ox O2 Del Method 10/25/22 09:56 36.6 C 89 18 114/71 94 Room Air Laboratory Results 10/25/22 10/25/22 10/25/22 Range/Units 14:28 12:12 11:17 WBC (4.8-10.8) K/ul RBC (3.93-5.22) M/uL Hgb (12.0-16.0) g/dl Hct (34.1-44.9) % MCV (80.0-100.0) fL MCH (25.0-34.0) pg MCHC (32.0-36.0) g/dL RDW Std Deviation (36.4-46.3) fL RDW Coeff of Roberto (11.5-14.5) % Plt Count (130-400) K/uL MPV (9.4-12.3) fL PT (9.0-12.0) Seconds INR (0.9-1.1) APTT (21.0-31.0) Seconds PTT Ratio Sodium 140 (136-145) mmol/L Potassium 4.0 (3.5-5.1) mmol/L Chloride 107 (98-107) mmol/L Carbon Dioxide 28 (21-32) mmol/L Anion Gap 5 (3-11) BUN 9 (6-23) mg/dl Creatinine 0.56 L (0.6-1.2) mg/dl Est Cr Clr Drug Dosing 91.4 ml/min Est GFR ( Amer) 112.6 ml/min Est GFR (Non-Af Amer) 97.2 ml/min BUN/Creatinine Ratio 16.1 (10-20) Glucose 98 (70-99(Fasting)) mg/dl Lactate Pending Calcium 9.0 (8.5-10.1) mg/dl Total Bilirubin 0.4 (0.2-1.0) mg/dl AST 21 (13-39) U/L ALT 12 (7-52) U/L Alkaline Phosphatase 69 (34-104) U/L Total Protein 6.5 (6.0-8.3) gm/dl Albumin 3.7 (3.4-5.0) gm/dl Globulin 2.8 (2.5-4.0) gm/dl Albumin/Globulin Ratio 1.3 (0.9-2) POC Stool Occult Blood Positive A (Negative) Blood Type Antibody Screen 10/25/22 10/25/22 10/25/22 Range/Units 11:17 11:17 11:17 WBC 11.24 H (4.8-10.8) K/ul RBC 4.50 (3.93-5.22) M/uL Hgb 13.7 (12.0-16.0) g/dl Hct 40.0 (34.1-44.9) % MCV 88.9 (80.0-100.0) fL MCH 30.4 (25.0-34.0) pg MCHC 34.3 (32.0-36.0) g/dL RDW Std Deviation 46.4 H (36.4-46.3) fL RDW Coeff of Roberto 14.3 (11.5-14.5) % Plt Count 286 (130-400) K/uL MPV 9.8 (9.4-12.3) fL PT 10.4 (9.0-12.0) Seconds INR 1.0 (0.9-1.1) APTT 25.7 (21.0-31.0) Seconds PTT Ratio 0.9 Sodium (136-145) mmol/L Potassium (3.5-5.1) mmol/L Chloride (98-107) mmol/L Carbon Dioxide (21-32) mmol/L Anion Gap (3-11) BUN (6-23) mg/dl Creatinine (0.6-1.2) mg/dl Est Cr Clr Drug Dosing ml/min Est GFR ( Amer) ml/min Est GFR (Non-Af Amer) ml/min BUN/Creatinine Ratio (10-20) Glucose (70-99(Fasting)) mg/dl Lactate Calcium (8.5-10.1) mg/dl Total Bilirubin (0.2-1.0) mg/dl AST (13-39) U/L ALT (7-52) U/L Alkaline Phosphatase (34-104) U/L Total Protein (6.0-8.3) gm/dl Albumin (3.4-5.0) gm/dl Globulin (2.5-4.0) gm/dl Albumin/Globulin Ratio (0.9-2) POC Stool Occult Blood (Negative) Blood Type O Positive Antibody Screen NEGATIVE Diagnostic Findings Abdomen/Pelvis CT 10/25/22 11:17 CT OF THE ABDOMEN AND PELVIS WITHOUT CONTRAST CLINICAL HISTORY: Abdominal pain. GI bleed. COMPARISON STUDY: CT of the abdomen and pelvis July 14, 2015 and pelvic ultrasound October 02, 2019. TECHNIQUE: Axial images of the abdomen and pelvis were obtained without IV contrast. Images were reviewed in the axial, sagittal, and coronal planes. Automated exposure control was utilized for the study. A dose lowering technique was utilized adhering to the principles of ALARA. FINDINGS: Healing nondisplaced anterior right seventh rib fracture is noted. Bilateral breast implants are partially imaged. There are postoperative findings within the spine consistent with L4-L5 discectomy, posterior decompression and bilateral pedicle screw fusion. There is no acute fracture within the visualized skeletal structures. No suspicious osseous lesions are present. No renal, ureteral or bladder calculi are present. There is no hydronephrosis or hydroureter. Evaluation of the remainder of the abdomen and pelvis is suboptimal on this unenhanced exam. A 2.4 cm right hepatic lobe cyst is noted. This was shown on prior CT. No biliary or pancreatic ductal dilatation. No peripancreatic or pericholecystic stranding. There is no evidence for a bowel obstruction. Moderate wall thickening with subtle pericolonic stranding of the descending and proximal sigmoid colon is noted. There is no free air. No abscess. Colonic diverticulosis is noted without evidence for acute diverticulitis. A moderate amount stool within the sigmoid colon is present. The appendix is normal. There is no lymphadenopathy. Moderate atherosclerotic plaque of the abdominal aorta is noted. Caliber of the abdominal aorta is normal. IMPRESSION: 1. Moderate wall thickening with mild pericolonic stranding of the descending and proximal sigmoid colon. This is consistent with colitis. Although nonspecific, this distribution raises the possibility of ischemic colitis. 2. Colonic diverticulosis. No evidence for acute diverticulitis. No bowel obstruction. ACT 112: Negative or not required by law. Electronically signed by: Nilson Rutledge M.D. 10/25/2022 12:34 PM
[2022-10-25] MEDS: LACTATED RINGER'S 1,000 ML IV SCH (16:33)
[2022-10-25] MEDS ORDERED: ALBUTEROL HFA 8 GM INHALER INH PRN (17:16)
[2022-10-25] MEDS ORDERED: ROSUVASTATIN CALCIUM 10 MG TAB PO SCH (21:00)
[2022-10-25] MEDS: ACETAMINOPHEN 325 MG TAB PO PRN (21:50)
[2022-10-25] MEDS ORDERED: traZODone HCL 50 MG TAB PO SCH (22:15)
[2022-10-26] MEDS: LACTATED RINGER'S 1,000 ML IV SCH ×2 (00:48→08:22)
[2022-10-26] MEDS: ACETAMINOPHEN 325 MG TAB PO PRN ×2 (04:02→09:19)
[2022-10-26] MEDS ORDERED: HYDROCODONE/ACETAMOPHEN 5/325MG TAB PO STA (04:37)
[2022-10-26 08:13] LABS: Basophils # (auto) 0.04 K/uL (0-0.2); Basophils % (auto) 0.6 %; Eosinophils # (auto) 0.18 K/uL (0-0.50); Eosinophils % (auto) 2.6 %; Hematocrit (blood only) 36.4 % (34.1-44.9); Hemoglobin 12.3 g/dl (12.0-16.0); Immature Granulocytes # (auto) 0.01 K/uL (0.00-0.02); Immature Granulocytes % (auto) 0.1 %; Lymphocytes # (auto) 3.25 K/uL (1.2-3.4); Lymphocytes % (auto) 47.4 %; Mean Corpuscular Hgb Conc 33.8 g/dL (32.0-36.0); Mean Corpuscular Volume 91.7 fL (80.0-100.0); Monocytes # (auto) 0.37 K/uL (0.24-0.82); Monocytes % (auto) 5.4 %; Neutrophils % (auto) 43.9 %; Platelet Count 251 K/uL (130-400); RDW Coefficient of Variation 14.5 % (11.5-14.5); RDW Standard Deviation 49.2 fL (36.4-46.3); Red Blood Count 3.97 M/uL (3.93-5.22); White Blood Count 6.85 K/ul (4.8-10.8)
[2022-10-26 08:43] LABS: BUN Creatinine Ratio 11.1 (10-20); Calcium 8.4 mg/dl (8.5-10.1); Creatinine Clr Calc Pharmacy 96.9 ml/min; Est GFR (Non-African American) 98.3 ml/min; Potassium 3.8 mmol/L (3.5-5.1)
[2022-10-26] MEDS ORDERED: HYDROcodone/ACETAMINOPHEN 10/325 TAB PO PRN (08:53)
[2022-10-26] MEDS ORDERED: DULoxetine HCL 60 MG CAP PO SCH (09:00)
[2022-10-26] MEDS ORDERED: PANTOprazole 40 MG TAB PO SCH (09:00)
[2022-10-26] MEDS ORDERED: NICOTINE 14 MG/24 HR PATCH TD SCH (09:00)
[2022-10-26] MEDS ORDERED: traZODone HCL 50 MG TAB PO SCH (09:00)
[2022-10-26 11:10] LABS: Basophils # (auto) 0.03 K/uL (0-0.2); Basophils % (auto) 0.6 %; Eosinophils # (auto) 0.12 K/uL (0-0.50); Eosinophils % (auto) 2.2 %; Hematocrit (blood only) 34.7 % (34.1-44.9); Hemoglobin 11.8 g/dl (12.0-16.0); Lymphocytes # (auto) 2.27 K/uL (1.2-3.4); Lymphocytes % (auto) 42.4 %; Mean Corpuscular Hemoglobin 30.6 pg (25.0-34.0); Mean Corpuscular Volume 89.9 fL (80.0-100.0); Mean Platelet Volume 9.9 fL (9.4-12.3); Monocytes # (auto) 0.29 K/uL (0.24-0.82); Monocytes % (auto) 5.4 %; Neutrophils # (auto) 2.65 K/uL (1.4-6.5); Neutrophils % (auto) 49.4 %; Platelet Count 238 K/uL (130-400); RDW Coefficient of Variation 14.4 % (11.5-14.5); RDW Standard Deviation 47.4 fL (36.4-46.3); Red Blood Count 3.86 M/uL (3.93-5.22); White Blood Count 5.36 K/ul (4.8-10.8)
--- NOTE | 2022-10-26 15:19 | Discharge Summary ---
Date of Service October 26, 2022 Admission HPI Per Admitting Provider Zoe is a 66-year-old female with a past medical history of PMR, gastric ulcers, hyperlipidemia, COPD, and TIA on aspirin recently scoped by [facility] 02/2022 with 5 gastric ulcers who presents with 2 weeks of dark tarry stools and melena. No chest pain, shortness of breath. Epigastric tenderness present on presentation to ER. Patient was started on PPI drip and ER and recommended for admission for recurrent EGD for ongoing melena. Hemoglobin on admission is 13.7, last 13.8. MCV 88.9. Zoe is seen at the bedside. She reports that she has a history of gastric ulcers and melena. This was first noticed last November when she had several episodes of black sticky bowel movements. She was unable to get a urgent colonoscopy here, and spends most of her time in the state of [place] over the winter so she had a EGD performed in [place] which showed 5 ulcers, and a colonoscopy which showed benign polyps. She had a 5-month follow-up with Dr. Esteban at [facility] which showed healing/improving ulcers and was continued on Protonix 40 mg daily. She is scheduled to have her next follow-up EGD next week for continued intermittent black bowel movements over the last few months, but developed severe low abdominal pain last night and felt like she could not wait. She describes her pain as a strong and crampy, like labor pain, and worse palpitation in her low mid abdomen. Denies epigastric pain. She is nauseous and feels like she would like to vomit, but has not vomited. She has not had any chest pain, chest pressure, shortness of breath, difficulty breathing. She has not used any aspirin or NSAIDs, and reports she has been taken off aspirin permanently by her [place] provider after her previous ulcer evaluation. Denies history of heart attacks, did have a possible TIA episode which she discussed with her prior provider before stopping aspirin she has a 0.5 pack/day cigarette use "forever, since teenager ", denies alcohol/recreational drug use. She denies fever, chills, sweats, li ghtheadedness, dizziness. Endorses anxiety and abdominal pain. Medical History: Reviewed Medications: Reviewed Surgical History: Reviewed Allergies: Reviewed Social History: Reviewed. Regular tobacco use Code Status: Full code Principal Diagnosis colitis Discharge Exam The patient is awake, alert and oriented 3, well developed and well nourished, normocephalic and atraumatic, lying in bed and in no acute distress. HEENT--PERRL, EOMI, mucous membranes and oropharynx mildly dry Neck--supple. No JVD. No bruits. Thyroid normal, trachea midline, no adenopathy. Heart--normal S1 and S2. No murmurs, rubs or gallops. Lungs--clear bilaterally, no respiratory distress, no accessory muscle use. Abdomen--normal bowel sounds and soft. Mild epigastric and left sided abdominal pain Extremities--no cyanosis or clubbing. No edema. Dermatologic--normal skin turgor, normal color, no abnormal lymph nodes, no rash. Neurologic--cranial nerves II through XII grossly intact. Rheumatologic--normal range of motion. Psychiatric--normal affect. Discharge Data Allergies Allergy/AdvReac Type Severity Reaction Status Date / Time levofloxacin Allergy Intermediate ITCHING.10/ Verified 10/25/22 17:34 24/14 moxifloxacin Allergy Intermediate ITCHING Verified 10/25/22 17:34 AND SWELLING IN HANDS azithromycin Allergy Unknown Unknown Verified 10/25/22 17:34 cefdinir Allergy Unknown Unknown Verified 10/25/22 17:34 Penicillins Allergy Unknown rash Verified 10/25/22 17:34 erythromycin base AdvReac Unknown VOMITING Verified 10/25/22 17:34 Consultations 10/25/22 13:00 ED Decision to Admit Stat 10/25/22 17:16 Consult Gastroenterology Routine Ordered Studies 10/25/22 11:17 CT abd pelvis wo con Stat Hospital Course (1) Colitis: Zoe is a 66-year-old female with a past medical history of PMR, gastric ulcers, hyperlipidemia, COPD, and TIA on aspirin recently scoped by [facility] 02/2022 with 5 gastric ulcers who presents with 2 weeks of dark tarry stools and melena. No chest pain, shortness of breath. Epigastric tenderness present on presentation to ER. Patient was started on PPI drip and ER and recommended for admission for recurrent EGD for ongoing melena. Hemoglobin on admission is 13.7, last 13.8. MCV 88.9. Melena, ?ischemic versus infectious colitis Patient presents with ongoing melena, with EGD 02/2022 showing 5 gastric ulcers Physical exam patient with tenderness infraumbilically without rebound, minimal to no epigastric pain Abdominal pain started after eating [employer] yesterday - CT-A/P noncontrast- IMPRESSION: 1. Moderate wall thickening with mild pericolonic stranding of the descending and proximal sigmoid colon. This is consistent with colitis. Although nonspecific, this distribution raises the possibility of ischemic colitis. 2. Colonic diverticulosis. No evidence for acute diverticulitis. No bowel obstruction. Lactate normal No NSAID use Is on aspirin daily for history of TIA Hemoglobin on admission 13.7, stable from prior 13.8. MCV 88.9, not microcytic - Placed on PPI drip empirically in ER to cover for upper GI bleed given history of ulcers Discussed with GI, updated on clinical exam. Recommended holding on antibiotics and CT angio pending evaluation and may get for interval reevaluation if not improving. Suspect ischemic versus possible infectious likely be self-limited (2) TIA (transient ischemic attack): TIA [facility] in 2019? TIA versus vasospasm. MRI was negative for acute findings, consistent with small vessel disease. No history of A. fib. Aspirin was discontinued at prior visit 2/2 GI bleeding. Risk/benefits pending evaluation and treatment of ongoing GI bleed event in the setting of past TIA. Hold for now (3) COPD (chronic obstructive pulmonary disease): COPD No PFTs available for review, patient is a daily cigarette user Denies wheezing, hospitalization for COPD Continue albuterol as needed at this time No wheezing on admitting exam (4) Depression with anxiety: Anxiety Continue duloxetine 60 mg daily (5) Polymyalgia rheumatica: (6) GIB (gastrointestinal bleeding): Plan discharge home Total Time Total Time Spent Total Time Spent (In Minutes): 35 Discharge Plan Discharge Items Patient Disposition: Home - Self-Care Reason For Visit: GIB Discharge Diagnosis: colitis Activity: Resume your previous activity Non-emergency contact: Primary Care Provider and Wire Tester Call non-emergency contact if: you have any medication questions Follow-up/Referrals: Shannan Leonard MD [Primary Care Provider] - 11/02/22 8:30 am (THIS APPOINTMENT WILL BE WITH MANUELITO GALICIA AT THE [facility]ICE) Diet: Regular Addtl Attending Provider Instructions: please make appointment to follow up with your regular casting room helper Pending Studies at Discharge: No Stand-Alone Forms: [facility], Smoking Cessation Medications and DC Order Prescriptions: Continued duloxetine [Cymbalta] 60 mg capsule,delayed release(DR/EC) 60 mg PO DAILY trazodone 50 mg tablet 50 mg PO HS rosuvastatin 10 mg tablet 10 mg PO HS hydrocodone-acetaminophen 10-325 mg tablet 1 tab PO TID PRN (Reason: Pain) albuterol sulfate [Ventolin HFA] 90 mcg/actuation HFA aerosol inhaler 2 puff INHALATION QID PRN (Reason: Wheezing) pantoprazole 40 mg tablet,delayed release (DR/EC) 40 mg PO DAILY Discharge Orders: Discharge Order (Routine); Ordered 10/26/22 Ordered By: Chris Carrillo Admission Data Admit Date/Time: 10/25/22 13:45 Attending Provider: Chris Carrillo Admit Provider: Enrico Hanson Primary Care Provider: Shnanan Leonard Other Providers: Enrico Hanson ; Miguel Sanders Other Interventions: Discharge Summary Assessment (RN) Last Done: 10/26/22 10:46 Coding Level of Care Code D/C DAY MANAGEMENT >30 MINS Diagnoses Colitis K52.9 TIA (transient ischemic attack) G45.9 COPD (chronic obstructive pulmonary disease) J44.9 Depression with anxiety F41.8 Polymyalgia rheumatica M35.3 GIB (gastrointestinal bleeding) K92.2 Time Spent (min) 35
== END 2022-10-26 11:17 | disposition home or self-care (01) | DRG 394 ==
LOC: ED 09:48 → SUATTDRO 13:45 → EDINP 13:45 → 2N 21:28